=== PATIENT | female | born 1985 | race Caucasian/White ===

== ENCOUNTER 2016-05-28 06:30 | Inpatient (IN) | payer OTHER ==
[~2016-05-28] VITALS: Ht 167.6 cm; Wt 79.8 kg
[~2016-05-28 06:30] MED LIST: FERR-83 PO; Ibuprofen PO; PREN-51 PO
[2016-05-28] MEDS ORDERED: Lactated Ringer's 1,000 ML IV PRN (06:55)
[2016-05-28] MEDS ORDERED: Methylergonovine 0.2 mg/mL Inj IM PRN ×2 (06:55→12:05)
[2016-05-28] MEDS ORDERED: Oxytocin 10 Unit/mL Inj IM PRN ×2 (06:55→12:05)
[2016-05-28] MEDS ORDERED: Oxytocin 30 Units/500 mL LR 30 UNITS in IV Premix 1 EACH IV PRN ×2 (06:55→12:05)
[2016-05-28] MEDS ORDERED: Sodium Chloride LOK Flush 10 mL Syringe IVFLUSH PRN (06:55)
[2016-05-28] MEDS ORDERED: Hemorrhage Kit, Post Partum XX ONE ×2 (06:55→12:05)
[2016-05-28] MEDS ORDERED: Carboprost 250 mCg/mL Inj IM PRN ×2 (06:55→12:05)
[2016-05-28 07:07] LABS: Mean Corpuscular Volume 91.9 fL (81-100)
[2016-05-28] MEDS ORDERED: Lactated Ringer's 1,000 ML IV SCH ×2 (07:27→12:04)
[2016-05-28] MEDS ORDERED: Lactated Ringer's 500 ML IV ONE (07:27)
[2016-05-28] MEDS ORDERED: EPHEDrine Sulfate 50 mg/mL Inj IVPUSH PRN (07:30)
[2016-05-28] MEDS ORDERED: Ondansetron 2 mg/mL 2 mL Inj IVPUSH PRN (07:30)
[2016-05-28] MEDS ORDERED: Atropine 1 mg/10 mL (Code) Syringe IVPUSH PRN (07:30)
[2016-05-28] MEDS ORDERED: fentaNYL 2 mCg/mL-Bupiv 0.125% 100 ML EPIDURAL SCH (07:30)
[2016-05-28] MEDS ORDERED: Sodium Chloride LOK Flush 10 mL Syringe IVFLUSH SCH (08:30)
--- NOTE | 2016-05-28 09:15 | PCM.HPANE ---
Patient Data Date of Service: May 28, 2016 Surgeon Admitting Provider:Yoandy Portillo MD Attending Provider:Yoandy Portillo MD Primary Care Physician:Yoandy Portillo MD Other Provider: Reason for Visit Term Labor Check TERM LABOR CHECK Ht/WT & BMI Weight (Kilograms): 79.8 Body Mass Index 28.4 Allergies Coded Allergies: No Known Allergies (Unverified , 10/11/14) Diabetes History Hx Diabetes?: No MRSA MRSA: No Medications Hypertension Medication: No Home Meds Incl Beta Britton: No Active Scripts Ferrous Sulfate 325 Mg [id number] Mg PO DAILY #60 TABLET Ref 1 Prov:Dallin Osman MD 10/12/14 [Ibuprofen] (Motrin)800 MG TABLET No Conflict [id number] Mg PO Q6H PRN For Pain # 30 TABLET Ref 0 Prov:Dallin Osman MD 10/12/14 Reported Medications Vit No.78/Iron/FA (Prenatabs FA Tablet)1 Each Tablet1 Each PO 10/11/14 History History of ENT Problems?: No Hx of Heart Problems?: No Hx of Respiratory Problem?: No Hx Neurologic Problems?: No Hx of GI Problems?: No Hx of Problems?: No HX of Peritoneal Dialysis: No Female Hx: Positive for:: Currently Hx Musculoskeletal Problems?: No Hx of Psycho/Social Problems?: No Hx Any Other Health Problems?: No Hx Diabetes: No Hx Alcohol Use: NoHx Substance Use: No Smoking Status: Never Smoker Have You Smoked inLast 12 mo: No Stop/Bang Treated for Sleep Apnea?: No Do You Have a CPAP Machine?: No LEOPOLDO Risk Assessment: Low Risk, <3 Yes Risk Assessment Category Category 1A: Patient has history of documented sleep apnea, and HAS NOT received any narcotic, sedative or anesthesia administration during this stay. Category 1B: Patient has history of documented sleep apnea, and HAS received any narcotic , sedative or anesthesia administration during this stay Category 2: Patient has SUSPECTED Obstructive Sleep Apnea, and HAS received any narcotic , sedative or anesthesia administration during this stay. Category 3: Patient has SUSPECTED Obstructive Sleep Apnea and HAS NOT received narcotic, sedative or anesthesia administration during this stay. Category 4: Outpatient in Procedural Areas with known sleep apnea or who screen positive for High Risk via the STOP/BANG questionnaire. Exam Exam General Appearance: Alert, Oriented X3, Cooperative HEENT/AIRWAY: MP 2, Neck Movement (Full), Mouth Opening (Wide) Lungs: Clear to Auscultation, Normal Air Movement Heart: Regular Rate/Rhythm, Normal S1, Normal S2 Meds/Labs/Diagnostics Labs Test 05/28/16 06:55 Plan Impression Patient chart reviewed, patient interviewed and anesthestic plan with risks, benefits, and alternatives discussed, and informed consent obtained. NPO Status: L&D protocol ASA Physical Status: ASA2 Mod Systemic Disease Anesthetic Plan: Epidural Bene/Risks/Altern/Consents: Yes HP Complete Prior to Induction: Yes Lior Mehta MD May 28, 2016 07:28
[2016-05-28] MEDS ORDERED: Bupivacaine-MPF 0.25% 30 mL Inj ONE (11:48)
[2016-05-28] MEDS ORDERED: Witch Hazel-Glycerin Pads TOPICAL PRN (12:05)
[2016-05-28] MEDS ORDERED: Benzocaine (Dermoplast) 20% 60 Gm Spray TOPICAL PRN (12:05)
[2016-05-28] MEDS ORDERED: LANOlin HPA 7 Gm Ointment TOPICAL PRN (12:05)
[2016-05-28] MEDS ORDERED: HYDROcodone-APAP 5-325 mg Tablet PO PRN (12:05)
--- NOTE | 2016-05-28 12:29 | PCM.OBVAG ---
Vaginal Delivery Date of Service May 28, 2016 Pre Operative Diagnosis Pre Operative Diagnosis Term gestation, labor Post Operative Diagnosis Post Operative Diagnosis Term gestation, delivered Procedure Obstetical Procedure: Normal Spontaneous Vaginal Delivery Chief Port Director/Cnc Grinder Provider and Cnc Grinder: Yoandy Portillo MD Indication for Procedure Induction: Active labor, AROM, Progressed normally through labor Findings Obstetrical Findings: (Female), Weight (7 lbs, 10 oz), Presentation (Vertex), 1 minute (9), 5 minutes (9), Placenta (Intact /Normal) Analgesia/Medications Obstetrical Anesthesia: Epidural Procedure Details Procedure Details Uncomplicated over an intact perineum. Blood Loss & Administration Estimated Blood Loss: 300 Blood Admin during procedure: No Post Procedure Plan Post Procedure Plan Routine care. Post delivery Condition: Mom stable Yoandy Portillo MD May 28, 2016 12:29
--- NOTE | 2016-05-28 16:35 | PCM.ANEP1 ---
Post Anesthesia Phase 1 PACU Phase 1 Assessment Date of Service: May 28, 2016 Anesthetic Administered: Epidural Level of Alertness: Awake, talking STAPLETON's with Equal Strength: Yes Pain: No Oxygen Delivery: Room Air Lungs: Normal Air Movement Dermatome Level: Full Sensation Lior Mehta MD May 28, 2016 16:35
--- NOTE | 2016-05-28 16:36 | PCM.ANEP2 ---
Post Anesthesia Evaluation ASA/CMS Post Anesthesia Date of Service: May 28, 2016 VS in Patient's Normal Range?: Yes Resp Stable; Airway Patent?: Yes CV Function & Hydration Stable: Yes Mental Status Recovered?: Yes Pain control Satisfactory?: Yes N/V Control Satisfactory?: Yes Lior Mehta MD May 28, 2016 16:36
[2016-05-29 06:33] LABS: Mean Corpuscular Hemoglobin 32.1 pg (27.0-35.0); Mean Corpuscular Volume 93.2 fL (81-100)
--- NOTE | 2016-05-29 09:44 | PCM.DC.OB ---
Obstetrical Discharge Summary Date of Service May 29, 2016 Date of hospital admission May 28, 2016 at 06:45 Date of Discharge: May 29, 2016 Providers Admitting Physician: Yoandy Portillo MD Primary Care Physician: Yoandy Portillo MD Attending Physician: Yoandy Portillo MD Problems: (1) Status: Resolved ICD Code: Z33.1 (2) with 39 completed weeks gestation Status: Acute ICD Code: Z3A.39 Brief History and Physical: See H&P, briefly: Uncomplicated course with patient who arrived for active labor. Hospital Course: , without difficulty. No significant pain. No complaints. ([Ibuprofen]) 800 MG TABLET 800 MG PO Q6H PRN PRN For Pain Prescribed by: BUDDY PRITCHARD MD Ferrous Sulfate (Ferrous Sulfate) 325 Mg Tablet 325 MG PO DAILY Prescribed by: BUDDY PRITCHARD MD Vit No.78/Iron/FA (Prenatabs FA Tablet) 1 Each Tablet 1 EACH PO ( Reported) Disposition Home Follow-up plan Follow up with [facility] with Dr. Pritchard. Dr. Portillo in 6 weeks. Plan IUD Discharge Diet: No restrictions Discharge Activity-General: No restrictions, Pelvic Rest for 6 weeks, Try not to overdue Craig Harkins MD May 29, 2016 09:44
--- NOTE | 2016-05-29 09:46 | PCM.DIOB ---
Obstetrical Disch Instruction Dates of Hospitalization Date of Hospital Admission May 28, 2016 at 06:45 Providers Admitting Physician: Yoandy Portillo MD Primary Care Physician: Yoandy Portillo MD Attending Physician: Yoandy Portillo MD Discharge Diagnosis Problems: (1) Qualifiers: Weeks of gestation: 39 weeks Qualified Code: Z3A.39 - 39 weeks gestation of Status: Resolved ICD Code: Z33.1 (2) with 39 completed weeks gestation Status: Resolved ICD Code: Z3A.39 Diet Discharge Diet: No restrictions Activity Discharge Activity-General: No restrictions, Try not to overdue, Be up and about, Balance rest and activity, Activity as energy allows Dressing and Incisional Care Hygiene: May shower Follow Up Plan Follow-up appointment: Weeks (6) Call your provider for: Fever or Chills, Shortness of breath, Heavy vaginal bleeding, Heavy bleeding, Epigastric pain, Excessive constipation, Vaginal discomfort, Red painful breasts Craig Harkins MD May 29, 2016 09:46
[2016-05-29] MEDS ORDERED: Ibuprofen PO (09:47)
[2016-05-29 10:37] VITALS: BP 115/74; PULSE 76; RESP 17
== END 2016-05-29 11:49 | disposition home or self-care (01) | DRG 775 ==
LOC: FBCO 06:30 → FBC 06:45
PROVIDERS: ADMIT Family Medicine; ATTEND Family Medicine
PROC: 10E0XZZ Delivery of Products of Conception, External Approach (ICD-10-PCS; principal; 2016-05-28)
DX: O80 Encounter for full-term uncomplicated delivery (principal); Z37.0 Single live birth; Z3A.39 39 weeks gestation of pregnancy